=== PATIENT | male | born 1955 | race Two or more races ===

== ENCOUNTER → 2020-08-03 | Outpatient (CLI) | payer OTHER ==
--- NOTE | 2020-08-03 09:31 | RAD ---
EXAM: Lumbar spine, 2 views. HISTORY: Pain. COMPARISON: None. FINDINGS: 2 views of the lumbar spine are obtained. There is no listhesis. The vertebral bodies are normal in height. The disc spaces are preserved. There is multilevel endplate remodeling. There is facet arthropathy predominantly at the lower lumbar levels. There is no fracture. IMPRESSION: Multilevel degenerative change. No acute osseous finding. Electronically signed by: Ginna Stokes MD (08/03/2020 9:28 AM) [id number]
== END ==
LOC: RAD 08:57
PROVIDERS: ATTEND Family Medicine
DX: M47.816 Spondylosis without myelopathy or radiculopathy, lumbar region (principal)
CPT/HCPCS: 72100